=== PATIENT | female | born 1960 | race Caucasian/White ===

== ENCOUNTER → 2016-10-05 | Outpatient (CLI) | payer BC ==
--- NOTE | 2016-10-05 11:45 | DIAGNOSTIC IMAGING REPORT ---
LEFT FOOT MIN 3 VIEWS ROUTINE CLINICAL HISTORY: LEFT FOOT PAIN POSSIBLE FOREIGN BODY COMPARISON: None. DISCUSSION: No fractures or dislocations are visualized. There is a small plantar calcaneal spur. There is a 2 cm needle fragment within the plantar soft tissues at the level of the distal fourth metatarsal. IMPRESSION: 1. No fractures identified 2. 2 cm needle fragment within the plantar soft tissues. Electronically signed by: Ryne Woodruff M.D. 10/05/2016 11:44 AM Dictated Date/Time: 10/05/2016 11:42 AM
== END | disposition home or self-care (01) ==
LOC: C.RAD1850 11:08
PROVIDERS: ATTEND Nurse Practitioner Family
DX: Z18.33 Retained wood fragments (principal)

== ENCOUNTER → 2017-01-13 | Outpatient (CLI) | payer BC ==
--- NOTE | 2017-01-13 10:47 | DIAGNOSTIC IMAGING REPORT ---
KUB HISTORY: CONSTIPATION AND OTHER FECAL ABNORMALITIES COMPARISON: None. FINDINGS: The bowel gas pattern is unremarkable. There are no dilated loops of small bowel to suggest an obstruction. No renal calculi. No ureteral calculi. No pneumoperitoneum or pneumatosis. Mild to moderate bilateral hip osteoarthritis. Mild dextroscoliosis of the lumbar spine. Large amount well-formed stool seen throughout the colon. IMPRESSION: Large amount of well-formed stool seen throughout the colon. Electronically signed by: Juan F Cruz M.D. 01/13/2017 10:46 AM Dictated Date/Time: 01/13/2017 10:44 AM
== END | disposition home or self-care (01) ==
LOC: C.RAD 09:45
PROVIDERS: ATTEND Nurse Practitioner Family
DX: K59.00 Constipation, unspecified (principal); R19.5 Other fecal abnormalities

== ENCOUNTER → 2017-08-09 | Outpatient (CLI) | payer OTHER ==
--- NOTE | 2017-08-09 10:54 | DIAGNOSTIC IMAGING REPORT ---
LEFT WRIST 4 VIEWS HISTORY: Left wrist pain. COMPARISON: None. FINDINGS: Small ossific density along the dorsal aspect of the wrist consistent with a triquetral fracture. Dorsal soft tissue swelling. No radiopaque foreign bodies. No dislocation. IMPRESSION: Small triquetral fracture. Electronically signed by: Juan F Cruz M.D. 08/09/2017 10:53 AM Dictated Date/Time: 08/09/2017 10:51 AM
== END | disposition home or self-care (01) ==
LOC: C.RAD1850 09:21
PROVIDERS: ATTEND Family Medicine
DX: S69.92XA Unspecified injury of left wrist, hand and finger(s), initial encounter (principal); X58.XXXA Exposure to other specified factors, initial encounter; S62.112A Displaced fracture of triquetrum [cuneiform] bone, left wrist, initial encounter for closed fracture